=== PATIENT | female | born 1985 | race Caucasian/White ===

== ENCOUNTER 2019-07-19 11:08 | Emergency (ER) | payer OTHER ==
[2019-07-19 11:14] VITALS: BP 128/78
--- NOTE | 2019-07-19 11:29 | ED Physician Documentation ---
PD HPI HEENT - Stated complaint Stated Complaint: RT EAR PX - Chief complaint Chief Complaint: Heent - History obtained from History obtained from: Patient - History of Present Illness Timing - onset: Today Timing - duration: Hours Timing - details: Abrupt onset Location: Right ear Associated symptoms: Congestion, Rhinorrhea. No: Fever Recently seen: Not recently seen - Additional information Additional information: This is a 34-year-old woman who presents with her complaints that she is had a recent cold and then [place] the [place] 2 [place] 3 days prior to presentation and her ears just never popped after that trip. She woke up in the middle the night around 1 AM with her right ear pain. She says the pain actually is almost gone now after taking ibuprofen and Mucinex at home. There was never any drainage. No fever. She has clear nasal mucus. No coughing. Review of Systems Constitutional: denies: Fever Ears: reports: Ear pain Nose: reports: Rhinorrhea / runny nose Throat: denies: Sore throat Respiratory: denies: Cough : denies: Now [facility] PAST MEDICAL HISTORY - Present Medications Home Medications: Ambulatory Orders Medication Instructions Recorded Confirmed Amoxicillin 875 mg PO BID #20 tablet 07/19/19 - Allergies Allergies/Adverse Reactions: Allergies Allergy/AdvReac Type Severity Reaction Status Date / Time shellfish derived Allergy Unknown Verified 07/19/19 11:14 PD ED PE NORMAL - Vitals Vital signs reviewed: Yes - General General: Alert and oriented X 3, No acute distress, Well developed/nourished - HEENT HEENT: Atraumatic, PERRL, EOMI, Ears normal (Left TM is clear. The right tympanic membrane is dull, erythematous and bulging. I could not identify landmarks.), Moist mucous membranes, Pharynx benign - Neck Neck: Supple, no meningeal sign. No: No adenopathy (There is an anterior cervical lymph node that is tender.) - Respiratory Respiratory: No respiratory distress - Derm Derm: Normal color, Warm and dry, No rash - Neuro Neuro: Alert and oriented X 3, No motor deficit, No sensory deficit, Normal speech Results - Vitals Vitals: Vital Signs - 24 hr 07/19/19 11:11 Temperature 36.6 C Heart Rate 66 Respiratory 15 Rate Blood Pressure 128/78 O2 Saturation 98 Oxygen O2 Source Room air PD MEDICAL DECISION MAKING - ED course Complexity details: d/w patient, d/w family ED course: Patient will be placed on amoxicillin for right otitis media. We discussed continuing to use anti-inflammatory of ibuprofen. Using steam and trying to gently pop the ears to help drain the fluid. Follow-up with her primary care provider as needed if not improving. Departure - Departure Disposition: 01 Home, Self Care Clinical Impression: Otitis media Qualifiers: Otitis media type: suppurative Chronicity: acute Laterality: right Recurrence: not specified as recurrent Spontaneous tympanic membrane rupture: without spontaneous rupture Qualified Code(s): H66.001 - Acute suppurative otitis media without spontaneous rupture of ear drum, right ear Condition: Good Instructions: ED Otitis Media Acute Adult Follow-Up: Your,Doctor [Other] Prescriptions: Amoxicillin 875 mg PO BID #20 tablet Comments: Start the amoxicillin today and take it twice a day for 10 days. Use ibuprofen for pain and as an anti-inflammatory. You can try some steam to help try and alleviate the pressure. You are still having a lot of pressure in 2 to 3 days y ou can try to start gently popping the ear to help drain that fluid. Follow-up with your primary care provider if you continue to have pain or other problems arise.
== END 2019-07-19 12:17 | disposition home or self-care (01) ==
LOC: ED 11:08
DX: H66.001 Acute suppurative otitis media without spontaneous rupture of ear drum, right ear (principal)
CPT/HCPCS: 99282; 99284